=== PATIENT | male | born 1955 | race Caucasian/White ===

== ENCOUNTER 2018-04-03 09:17 | Outpatient (REF) | payer OTHER, SELFPAY ==
[2018-04-03 20:47] LABS: HCT 45.7 % (40.0-50.0); HGB 16.1 g/dL (13.5-17.5); Mean Corp. HGB Concentration 35.2 g/dL (32.0-36.0); Mean Corpuscular Volume 85.1 fL (80-95); Mean Platelet Volume 9.4 fL (8.0-11.0); Platelet Count 263 x1000/uL (130-400); RBC 5.37 m/cumm (4.50-6.00); RBC Distribution Width 12.8 % (11.8-14.1); White Blood Cell Count 6.43 k/cumm (4.4-10.8)
[2018-04-03 21:47] LABS: ALT 126 U/L (12-78); AST 52 U/L (15-37); Alkaline Phosphatase 93 U/L (46-116); Anion Gap 9.2 mmol/L (3-11); BUN 15 mg/dL (7-18); Bilirubin, Total 0.4 mg/dL (0.2-1.0); CO2 25.8 mmol/L (21.0-32.0); CREATININE 1.08 mg/dL (0.70-1.30); Calcium 9.1 mg/dL (8.5-10.1); Chloride 101 mmol/L (98-107); Cholesterol 233 mg/dL (50-200); Glucose 214 mg/dL (70-100); HDL Cholesterol 31 mg/dL (40-60); LDL CHOLESTEROL 122 mg/dL (<100); Potassium 4.3 mmol/L (3.5-5.1); Sodium 136 mmol/L (136-145); Total Protein 7.6 g/dL (6.4-8.2); Triglyceride 500 mg/dL (30-150)
== END 2018-04-03 09:37 ==
LOC: NCHCN 09:17
PROVIDERS: PCP Family Medicine; Visit Provider Family Medicine
DX: K82.4 Cholesterolosis of gallbladder (principal); R74.8 Abnormal levels of other serum enzymes; E11.9 Type 2 diabetes mellitus without complications; I10 Essential (primary) hypertension; E78.5 Hyperlipidemia, unspecified
CPT/HCPCS: 80053; 80061; 83721; 85027

== ENCOUNTER 2018-04-09 01:28 | Outpatient (CLI) | payer OTHER, SELFPAY ==
--- NOTE | 2018-04-09 07:02 | DI.US_ITS ---
SYMPTOM/DIAGNOSIS: GB POLYPS, K82.4, ELEVATED LIVER ENZYMES, R74.8 ABDOMEN ULTRASOUND: Comparison is made with 09/09/14. The liver is mildly enlarged and shows mild fatty infiltration. Several gallstones are again identified. There is a 2 mm. echogenic focus adherent to the gallbladder wall which likely represents cholesterol deposition. The spleen is at the upper limits of normal in size at 14 cm. The tail of the pancreas was unable to be visualized. The kidneys are unremarkable. An area of focal fatty sparing is again noted adjacent to the gallbladder fossa. No biliary dilatation is seen. There is no evidence of ascites. IMPRESSION: Hepatic steatosis. Borderline splenomegaly. Cholelithiasis.
== END 2018-04-09 01:48 ==
PROVIDERS: PCP Family Medicine; Visit Provider Family Medicine
DX: K82.4 Cholesterolosis of gallbladder (principal); R74.8 Abnormal levels of other serum enzymes; R16.1 Splenomegaly, not elsewhere classified; K76.0 Fatty (change of) liver, not elsewhere classified; K80.20 Calculus of gallbladder without cholecystitis without obstruction
CPT/HCPCS: 76700

== ENCOUNTER 2018-11-21 10:58 | Outpatient (REF) | payer OTHER, SELFPAY ==
[2018-11-21 19:10] LABS: Absolute Basophil Count 0.06 k/cumm (0.0-0.2); Absolute Eosinophil Count 0.07 k/cumm (0.0-0.7); Absolute Lymphocyte Count 2.07 k/cumm (1.2-3.4); Absolute Neutrophil Count 4.43 k/cumm (1.2-6.7); Basophils % 0.8; HCT 45.3 % (40.0-50.0); HGB 15.9 g/dL (13.5-17.5); Mean Corp. HGB Concentration 35.1 g/dL (32.0-36.0); Mean Corpuscular Hemoglobin 29.9 pg (27.0-33.0); Mean Corpuscular Volume 85.2 fL (80-95); Mean Platelet Volume 9.8 fL (8.0-11.0); Neutrophils % 62.2; Platelet Count 295 x1000/uL (130-400); RBC 5.32 m/cumm (4.50-6.00); RBC Distribution Width 12.7 % (11.8-14.1); White Blood Cell Count 7.13 k/cumm (4.4-10.8)
[2018-11-21 19:44] LABS: ALT 137 U/L (12-78); AST 61 U/L (15-37); Albumin 4.1 g/dL (3.4-5.0); Alkaline Phosphatase 100 U/L (46-116); Anion Gap 13.6 mmol/L (3-11); BUN 12 mg/dL (7-18); Bilirubin, Total 0.5 mg/dL (0.2-1.0); CO2 21.4 mmol/L (21.0-32.0); CREATININE 1.11 mg/dL (0.70-1.30); Calcium 8.7 mg/dL (8.5-10.1); Chloride 99 mmol/L (98-107); Glucose 281 mg/dL (70-100); Potassium 4.4 mmol/L (3.5-5.1); Sodium 134 mmol/L (136-145); Total Protein 7.9 g/dL (6.4-8.2)
== END 2018-11-21 11:18 ==
LOC: NCHCN 10:58
PROVIDERS: PCP Family Medicine; Visit Provider Physician Assistant Medical
DX: R10.11 Right upper quadrant pain (principal); K80.20 Calculus of gallbladder without cholecystitis without obstruction
CPT/HCPCS: 80053; 85025

== ENCOUNTER 2018-11-23 11:05 | Emergency (ER) | payer OTHER, SELFPAY ==
[2018-11-23 11:20] VITALS: BP 150/84; PULSE 78; RESP 12; TEMP 36.6; O2SAT 95
[2018-11-23 11:22] VITALS: BP 169/94; PULSE 77; O2SAT 96
--- NOTE | 2018-11-23 11:25 | ED.GENADUL_ITS ---
Discharge Plan Disposition Patient Disposition: HOME Condition: Fair Discharge Details Chief Complaint: Abd Prob Clinical Impression: Acute urinary retention, Enlarged prostate Primary Care Provider: Adrianne Guerra V ED Provider: Jocelyne Daily Home Meds and New Rx's Prescriptions: New silodosin [Rapaflo] 8 mg capsule 8 mg PO DAILY Qty: 10 RF: 0 Continued bupropion HCl [Wellbutrin XL] 150 MG tablet extended release 24 hr 150 mg PO DAILY RF: 0 multivitamin with minerals [Multiple Vitamin-Minerals] 1 EACH tablet 1 ea PO DAILY RF: 0 rgaisenbcsj-pocgnarmx-xwv C-Mn [Glucosamine 1500 Complex] 1 EACH capsule 1 ea PO DAILY RF: 0 Fish Oil 1 EACH capsule 1 ea PO DAILY RF: 0 amitriptyline 50 MG tablet 50 mg PO HS RF: 0 ibuprofen 800 MG tablet 800 mg PO TID PRN PRNQty: 90 RF: 1 metformin 500 mg Tablet 500 mg PO DAILY RF: 0 lisinopril 10 mg Tablet 10 mg PO DAILY RF: 0 ezetimibe 10 mg Tablet 10 mg PO DAILY RF: 0 Discharge Instructions Instructions: Urinary Retention in Men (ED) Additional Instructions: Encourage hydration. May continue with Tylenol and/or Ibuprofen as needed for discomfort. Take Rapaflow as prescribed. You will need follow up with urology, please call tomorrow to schedule appointment, number listed below. If you develop fevers/chills, increased pain or other new/worsening symptoms please seek care urgently once again. Referrals: Adrianne Guerra MD [Primary Care Provider] - Sven Whitlock MD [ [facility] STAFF PHYSICIAN] - Discharge Data Discharge Date/Time-TO BE ENTERED AT DEPARTURE: 11/23/18 15:18 Medical Decision Making Patient is a 63 year old male, presenting today with c/c of RUQ pain. However, on exam, the pain seems to be more in the right lower quadrant. Patient is tender over McBurney's point. He appears nontoxic. He is resting comfortably. Denies any analgesics. He is noted to be slightly hypertensive with a blood pressure of 150/84. Patient does report that his blood pressure has been higher than typical this week. Is also noted that his glucose has been elevated in the 150s to 200 range which is atypical for him. This is likely having to do with his abdominal issue. I am concerned for possible appendicitis. While there was a question for possible cholecystitis, he is not having any pain in the right upper quadrant at this time. Negative Lazaro's exam. Will obtain CT imaging and labs. Discussed this plan with the patient who is in agreement Labs reviewed. No leukocytosis. Patient's alk phos and AST are elevated but this is baseline for the patient. His glucose is 200 which is consistent with his report that his home glucose over the past week. CT reviewed by radiologist: Notes bladder wall being thick, this is distended. Concerned for cystitis Normal appendix. GB nothing focal, unable to visualize stones. No ductal dilation. Fatty liver Discussed these findings with the patient. With his distended bladder, we obtained a postvoid residual and the patient was noted to have 350 cc so retained. Discussed catheter placement but patient declined. Prefers pharmacologic modalities instead. Is that this will greatly interfere with his life, particularly with his current employment. I therefore consulted with Dr. Whitlock who advised placing the patient on Rapaflo. He advised the patient follow-up with them in the office this week, patient will call to schedule appointment. I encouraged hydration. He was given strict return precautions. In particular, we discussed signs and symptoms of infection. He will also keep his upcoming appointment with general surgeon regarding his known gallstone pathology. All of his questions and concerns were addressed and he is in agreement with this plan HPI General Mode of arrival: ambulatory . Date/Time Provider Initiated Documentation: 11/23/18 11:24 . Limitations to Documentation: no limitations . Information obtained by: patient, family and RN notes reviewed . HPI Narrative: Patient is a 63-year-old male presenting today with chief complaint of right upper quadrant pain. States the pain has been intermittent over the past week. Reports that he has history of gall stones, was seen by his PCP who was concerned that this may have been the source of his pain. He denies nausea/vomiting. No change in bowel or bladder habits. Feels that his symptoms can occasionally be worsened by food otherwise, no known exacerbating factors. Patient has upcoming appointment with general surgeon to discuss this issue as well as his known gallstones. Related Data Home Medications Medication Instructions Recorded Confirmed amitriptyline 50 mg PO HS 10/20/12 11/23/18 bupropion HCl [Wellbutrin XL] 150 mg PO DAILY tab-cap 07/13/16 11/23/18 Fish Oil 1 ea PO DAILY 08/22/16 11/23/18 gokocbtdioh-twronegjo-fkt C-Mn 1 ea PO DAILY 08/22/16 11/23/18 [Glucosamine 1500 Complex] multivitamin with minerals 1 ea PO DAILY 08/22/16 11/23/18 [Multiple Vitamin-Minerals] ibuprofen 800 mg PO TID PRN PRN #90 tablet 09/20/16 11/23/18 ezetimibe 10 mg PO DAILY 11/23/18 11/23/18 lisinopril 10 mg PO DAILY 11/23/18 11/23/18 metformin 500 mg PO DAILY 11/23/18 11/23/18 silodosin [Rapaflo] 8 mg PO DAILY #10 cap 11/23/18 Previous Rx's Medication Instructions Recorded ibuprofen 800 mg PO TID PRN PRN #90 tablet 09/20/16 silodosin [Rapaflo] 8 mg PO DAILY #10 cap 11/23/18 Allergies Allergy/AdvReac Type Severity Reaction Status Date / Time Latex, Natural Rubber Allergy Skin Rash Unverified 11/23/18 12:17 lisinopril AdvReac Mild cough Unverified 11/23/18 12:17 General Stated Complaint: Abd Prob LAWRENCE: 4 Review of Systems Constitutional Reports as per HPI, Denies chills, Denies fatigue, Denies fever(s) and Denies headache(s) ENT Denies headache(s) Cardiovascular Reports as per HPI, Denies chest pain and Denies dyspnea Respiratory Reports as per HPI, Denies cough and Denies dyspnea Gastrointestinal Reports as per HPI Genitourinary Denies system reviewed and no additional complaints, except as docu (patient denies any change in urinary habits) Musculoskeletal Reports as per HPI and Denies back pain Integumentary/Breasts Reports as per HPI and Denies rash Neurologic Reports as per HPI and Denies headache(s) Endocrine Denies fatigue [facility] Medical History Abdominal pain Achilles tendonitis Arthritis Depression Diabetes mellitus Elevated liver enzymes Gallbladder polyp Hand swelling History of hepatitis Hyperlipidemia Hypertension Insomnia Left hand pain Nonalcoholic hepatosteatosis [place] (obstructive sleep apnea) Right knee pain Right shoulder pain Surgical History Colonoscopy - IV Sedation Colonoscopy - MAC (06/24/17) Rotator Cuff Repair Tonsillectomy and adenoidectomy Family History Father Personal history of malignant neoplasm Social History Smoking/Tobacco Use Status: Never Alcohol Intake: never Drug use: Never Substance use type: does not use Do you feel safe at home: Yes Do you feel safe in your relationship?: Yes Exam Const General: cooperative, healthy appearing, comfortable, no acute distress and well developed Nutritional Appearance: average body habitus and well nourished Orientation: alert and awake [facility] Head: normal to inspection Mouth: moist mucous membranes Resp Effort & Inspection: normal respiratory effort, able to speak in complete sentences and no respiratory distress Auscultation: clear to auscultation bilaterally, no rales, no rhonchi and no wheezes Cardio Rate: regular rate Rhythm: regular rhythm Heart Sounds: S1 normal and S2 normal GI Inspection: normal to inspection, no abdominal wall ecchymosis, no edema, non- distended and no incisions Palpation: soft, no hepatosplenomegaly, not firm, no guarding, no hepatomegaly, no masses, not rigid and tender in the RLQ and at McBurney's point; Lazaro's sign negative, obturator sign negative, psoas sign negative and with no rebound tenderness Percussion: normal to percussion Auscultation: normal bowel sounds Back/Spine/Pelvis Back: no CVA tenderness Skin General skin exam: no rashes or lesions noted Trauma: no lacerations or abrasions Neuro General: alert and awake Cognition: normal cognition Speech: speech normal Gait: normal gait Psych Appearance: grossly normal and well kempt Mental Status: mental status grossly normal Speech and Movement: speech and movement normal Course Vital Signs Temperature 36.6 C 11/23/18 11:20 Temperature 36.6 C 11/23/18 11:20 Temperature Source Skin 11/23/18 11:20 Pulse 77 11/23/18 11:22 Blood Pressure 169/94 H 11/23/18 11:22 Pulse Oximetry 96 11/23/18 11:22 Oxygen Delivery Method Room Air 11/23/18 11:22 Oxygen Flow Rate 0 11/23/18 11:22
[2018-11-23 12:19] LABS: Absolute Basophil Count 0.04 k/cumm (0.0-0.2); Absolute Eosinophil Count 0.08 k/cumm (0.0-0.7); Absolute Lymphocyte Count 1.83 k/cumm (1.2-3.4); Absolute Monocyte Count 0.45 k/cumm (0.11-0.7); Basophils % 0.7; Eosinophils % 1.4; HCT 43.2 % (40.0-50.0); HGB 15.5 g/dL (13.5-17.5); Lymphocytes % 32.1; Mean Corp. HGB Concentration 35.9 g/dL (32.0-36.0); Mean Corpuscular Hemoglobin 30.3 pg (27.0-33.0); Mean Corpuscular Volume 84.5 fL (80-95); Mean Platelet Volume 9.3 fL (8.0-11.0); Monocytes % 7.9; Neutrophils % 57.9; Platelet Count 258 x1000/uL (130-400); RBC 5.11 m/cumm (4.50-6.00); RBC Distribution Width 12.8 % (11.8-14.1)
[2018-11-23 12:31] LABS: Lipase 318 U/L (73-393)
[2018-11-23 12:33] LABS: Bilirubin Negative (Negative); Blood Negative (Negative); Clarity Clear (Clear); Glucose 100 mg/dL (Negative); Ketones Negative (Negative); Leukocyte Esterase Negative (Negative); Nitrite Negative (Negative); Urobilinogen 0.2 EU/dL (Up TO 0.2)
[2018-11-23] MEDS: Normal Saline 1,000 ML 1000 ML IV (12:33)
[2018-11-23] MEDS: Normal Saline Flush 10 ML SYR IVP (12:33)
[2018-11-23 12:40] LABS: ALT 132 U/L (12-78); AST 71 U/L (15-37); Albumin 3.7 g/dL (3.4-5.0); Alkaline Phosphatase 83 U/L (46-116); Anion Gap 10.1 mmol/L (3-11); BUN 11 mg/dL (7-18); Bilirubin, Total 0.5 mg/dL (0.2-1.0); CO2 25.9 mmol/L (21.0-32.0); CREATININE 1.04 mg/dL (0.70-1.30); Calcium 8.9 mg/dL (8.5-10.1); Chloride 101 mmol/L (98-107); Glucose 207 mg/dL (70-100); Magnesium 2.1 mg/dL (1.8-2.4); Sodium 137 mmol/L (136-145); Total Protein 7.6 g/dL (6.4-8.2)
[2018-11-23 12:42] LABS: Troponin I < 0.05 ng/mL (0.00-0.06)
[2018-11-23] MEDS: Omnipaque 350 MG/ML 100 ML BTL IJ (13:09)
--- NOTE | 2018-11-23 13:15 | DI.CT_ITS ---
SYMPTOM/DIAGNOSIS: RLQ PAIN ABDOMEN AND PELVIC CT: CT examination of the abdomen and pelvis was performed with a bolus infusion of 100 cc's of Omnipaque 350. Images obtained through the lung bases are unremarkable. Note is made of hepatic steatosis. The gallbladder and bile ducts are CT normal as is the pancreas. Adrenals and kidneys appear normal, no evidence of urinary tract calcification or obstruction. Abdominal aorta is of normal diameter and no major vascular abnormality is seen. No significant abdominal wall hernia is seen. No significant abdominal or pelvic adenopathy. The appendix is normal. No evidence of diverticulitis or bowel obstruction. Prostate is enlarged and nodular in appearance. Prostate protrudes into the urinary bladder. Mild urinary bladder wall thickening, this may be associated with chronic bladder outlet obstruction versus cystitis. CONCLUSION: 1. Hepatic steatosis. 2. Question chronic bladder outlet obstruction versus cystitis, prostate is markedly enlarged.
--- NOTE | 2018-11-23 14:00 | NUR.NOTE ---
Nursing Note: pt instructed to void into urinal. pt voided 300 mL clear yellow urine. Bladder scan then completed. >352 mL urine remaining in bladder immediately post void
[2018-11-23 15:17] VITALS: BP 134/85; PULSE 67; RESP 18; TEMP 36.5; O2SAT 95
== END 2018-11-23 15:18 | disposition home or self-care (01) ==
PROVIDERS: Emergency Provider Physician Assistant; PCP Family Medicine
DX: N40.1 Benign prostatic hyperplasia with lower urinary tract symptoms (principal); R33.9 Retention of urine, unspecified; I10 Essential (primary) hypertension; E11.9 Type 2 diabetes mellitus without complications; Z79.84 Long term (current) use of oral hypoglycemic drugs
CPT/HCPCS: 36415; 80053; 83690; 99285; 74177; 81003; 83735; 84484; 85025; 99284; J3490

== ENCOUNTER 2018-12-04 09:05 | Outpatient (CLI) | payer OTHER, SELFPAY ==
[2018-12-05 09:59] LABS: PSA, Screening 3.1 ng/ml (0-4.5)
== END 2018-12-04 09:25 ==
PROVIDERS: PCP Family Medicine; Visit Provider Nurse Practitioner Gerontology
DX: N40.0 Benign prostatic hyperplasia without lower urinary tract symptoms (principal); N40.2 Nodular prostate without lower urinary tract symptoms; Z80.42 Family history of malignant neoplasm of prostate; Z12.5 Encounter for screening for malignant neoplasm of prostate
CPT/HCPCS: 36415; 84153

== ENCOUNTER 2018-12-16 10:16 | Outpatient (REF) | payer OTHER, SELFPAY ==
[2018-12-16 21:29] LABS: Abs Immature Grans 0.01 k/cumm (0.0-0.09); Absolute Basophil Count 0.07 k/cumm (0.0-0.2); Absolute Eosinophil Count 0.11 k/cumm (0.0-0.7); Absolute Lymphocyte Count 1.78 k/cumm (1.2-3.4); Absolute Monocyte Count 0.46 k/cumm (0.11-0.7); Absolute Neutrophil Count 3.59 k/cumm (1.2-6.7); Basophils % 1.2; Eosinophils % 1.8; HCT 45.5 % (40.0-50.0); HGB 16.4 g/dL (13.5-17.5); Immature Grans % 0.2; Lymphocytes % 29.6; Mean Corpuscular Hemoglobin 30.5 pg (27.0-33.0); Mean Corpuscular Volume 84.6 fL (80-95); Mean Platelet Volume 9.5 fL (8.0-11.0); Monocytes % 7.6; Neutrophils % 59.6; Platelet Count 296 x1000/uL (130-400); RBC 5.38 m/cumm (4.50-6.00); RBC Distribution Width 12.5 % (11.8-14.1); White Blood Cell Count 6.02 k/cumm (4.4-10.8)
[2018-12-16 21:49] LABS: ALT 204 U/L (16-63); AST 77 U/L (15-37); Albumin 4.1 g/dL (3.4-5.0); Alkaline Phosphatase 100 U/L (46-116); Anion Gap 10.1 mmol/L (3-11); BUN 13 mg/dL (7-18); Bilirubin, Total 0.5 mg/dL (0.2-1.0); CO2 23.9 mmol/L (21.0-32.0); CREATININE 1.09 mg/dL (0.70-1.30); Calcium 9.2 mg/dL (8.5-10.1); Chloride 100 mmol/L (98-107); Glucose 312 mg/dL (70-100); Potassium 4.6 mmol/L (3.5-5.1); Sodium 134 mmol/L (136-145); Total Protein 7.8 g/dL (6.4-8.2)
[2018-12-18 11:03] LABS: PSA, Screening 3.8 ng/ml (0-4.5)
== END 2018-12-16 10:36 ==
LOC: NCHCN 10:16
PROVIDERS: Nurse Practitioner Gerontology; PCP Family Medicine; Visit Provider Family Medicine
DX: Z80.42 Family history of malignant neoplasm of prostate (principal); R10.31 Right lower quadrant pain; Z12.5 Encounter for screening for malignant neoplasm of prostate
CPT/HCPCS: 80053; 84153; 85025

== ENCOUNTER 2019-10-30 09:07 | Outpatient (REF) | payer OTHER, SELFPAY ==
[2019-10-30 19:47] LABS: Hemoglobin A1C 7.9 % (3.8-5.6)
[2019-10-30 19:52] LABS: ALT 198 U/L (16-63); AST 107 U/L (15-37); Albumin 4.2 g/dL (3.4-5.0); Alkaline Phosphatase 83 U/L (46-116); Anion Gap 12.2 mmol/L (3-11); BUN 13 mg/dL (7-18); Bilirubin, Total 0.6 mg/dL (0.2-1.0); CO2 24.8 mmol/L (21.0-32.0); CREATININE 0.98 mg/dL (0.70-1.30); Calcium 9.1 mg/dL (8.5-10.1); Calculated LDL 157 mg/dL (<100); Chloride 103 mmol/L (98-107); Cholesterol 232 mg/dL (<200); Glucose 172 mg/dL (74-106); HDL Cholesterol 38 mg/dL (40-60); Potassium 4.1 mmol/L (3.5-5.1); Sodium 140 mmol/L (136-145); Total Protein 7.7 g/dL (6.4-8.2); Triglyceride 187 mg/dL (<150)
== END 2019-10-30 09:27 ==
LOC: NCHCN 09:07
PROVIDERS: PCP Family Medicine; Visit Provider Family Medicine
DX: E88.81 Metabolic syndrome and other insulin resistance (principal); K76.0 Fatty (change of) liver, not elsewhere classified; E11.9 Type 2 diabetes mellitus without complications; I10 Essential (primary) hypertension; E78.5 Hyperlipidemia, unspecified
CPT/HCPCS: 80053; 80061; 83036

== ENCOUNTER 2019-11-25 01:41 | Outpatient (CLI) | payer OTHER, SELFPAY ==
--- NOTE | 2019-11-25 | DI.US_ITS ---
EXAM: US ABDOMEN CLINICAL HISTORY: KNOWN CH,ELEVATED LFT'S,? NEW ABNORMALITY TECHNIQUE: Ultrasound performed using standard protocol. COMPARISON: US ABDOMEN ULTRASOUND (P) from 09/09/2014 US ABDOMEN ULTRASOUND (P) from 09/09/[address] ABDOMEN PELVIS W from 11/23/2018 FINDINGS: The liver is mildly enlarged, measuring 17.7 cm in length. There is dpeo-po-vuzvhblx increased live r echogenicity, consistent with hepatic steatosis. No focal liver lesions or biliary dilatation is s een. Stones are noted in the gallbladder. There is a stone at the gallbladder neck which appears no nmobile. There is no abnormal gallbladder wall thickening or pericholecystic fluid. There is no son ographic Lazaro sign. There is borderline splenomegaly. The kidneys and aorta and visualized portio ns of the pancreas are unremarkable. IMPRESSION: Cholelithiasis. No evidence acute cholecystitis. Hepatic steatosis. DATA REPOSITORY:
== END 2019-11-25 02:01 ==
PROVIDERS: PCP Family Medicine; Visit Provider Physician Assistant Medical
DX: K80.20 Calculus of gallbladder without cholecystitis without obstruction (principal); K76.0 Fatty (change of) liver, not elsewhere classified
CPT/HCPCS: 76700

== ENCOUNTER 2019-12-18 02:14 | Outpatient (CLI) | payer OTHER, SELFPAY ==
[2019-12-21 10:27] LABS: PSA, Screening 3.6 ng/mL (0.0-4.5)
== END 2019-12-18 02:34 ==
PROVIDERS: PCP Family Medicine; Visit Provider Nurse Practitioner Gerontology
DX: N40.0 Benign prostatic hyperplasia without lower urinary tract symptoms (principal); Z12.5 Encounter for screening for malignant neoplasm of prostate; Z80.42 Family history of malignant neoplasm of prostate
CPT/HCPCS: 36415; 84153

== ENCOUNTER 2020-01-14 15:05 | Outpatient (REF) | payer OTHER, SELFPAY ==
[2020-01-14 19:20] LABS: HCT 42.5 % (40.0-50.0); HGB 14.9 g/dL (13.5-17.5); MCH 30.3 pg (27.0-33.0); MCHC 35.1 % (32.0-36.0); MCV 86.4 fL (80-95); MPV 9.3 fL (8.0-11.0); Platelet Count 288 10^3/uL (130-400); RBC 4.92 10^6/uL (4.36-5.78); RDW 12.2 % (11.8-14.1); RDW-SD 38.6 fL; WBC 7.64 10^3/uL (4.4-10.8)
[2020-01-14 19:57] LABS: Hemoglobin A1C 7.5 % (<5.7)
== END 2020-01-14 15:25 ==
LOC: NCHCN 15:05
PROVIDERS: PCP Family Medicine; Visit Provider Family Medicine
DX: E11.9 Type 2 diabetes mellitus without complications (principal); R23.2 Flushing
CPT/HCPCS: 85027; 83036

== ENCOUNTER 2020-04-15 04:29 | Outpatient (CLI) | payer OTHER, SELFPAY ==
--- NOTE | 2020-04-15 | DI.RAD_ITS ---
EXAM: XR SHOULDER LT COMPLETE 2+V CLINICAL HISTORY: LT SHOULDER JOINT PAIN,M25.512. TECHNIQUE: 2D digital imaging was performed. COMPARISON: No exams were available for comparison FINDINGS: BONES: No acute fracture is present. No bony destructive lesion is seen. JOINTS: No dislocation present. SOFT TISSUE: Normal. IMPRESSION: Unremarkable radiographs of the left shoulder. DATA REPOSITORY: RADIATION DOSE DELIVERED:
== END 2020-04-15 04:49 ==
PROVIDERS: PCP Family Medicine; Visit Provider Nurse Practitioner Family
DX: M25.512 Pain in left shoulder (principal)
CPT/HCPCS: 73030

== ENCOUNTER 2020-05-23 01:07 | Outpatient (CLI) | payer OTHER, SELFPAY ==
--- NOTE | 2020-05-23 | DI.MRI_ITS ---
EXAM: MR UPPER JOINT LT WO CLINICAL HISTORY: LT SHOULDER PAIN, M25.512, ? ROTATOR CUFF TEAR TECHNIQUE: Multiplanar multisequence MRI of the shoulder was performed. COMPARISON: CR XR SHOULDER LT COMPLETE 2+V from 04/15/2020 FINDINGS: MARROW:There is no evidence of fracture, Hill-Sachs deformity, nor ominous osseous lesions. ROTATOR CUFF MECHANISM: AC JOINT/ACROMIUM: Minimal degenerative changes in the AC joint. No downgoing osteophytes. Undersur face of the acromion is flat. There is no acromial impingement hook evident. There is no evidence of os acromiale. Supraspinatus: Mild increased signal. No high-grade tear. No atrophy. Infraspinatus: Intact. No evidence of tear nor muscle atrophy. Teres Minor: Intact. No evidence of tear nor muscle atrophy. Subscapularis/anterior cuff: Intact. No abnormal signal at the level of the multipennate insertional fibers. No significant tear nor atrophy. BICEPS TENDON: Normally position in the intertubercular groove. No evidence of tear. LABRUM: There is abnormal signal in the superior labrum posterior to the biceps insertion site consis tent with an element of SLAP tear. Tear does not appear to extend into the posterior labrum. Inferi or labrum is intact. Mild increased signal in the anterior labrum is noted. There are no degenerati ve subarticular cysts in the osseous glenoid. GLENOHUMERAL JOINT: There is a small-moderate size joint effusion. No loose intra-articular body see n. No evidence of capsular tear. The inferior glenohumeral ligament is intact. CAPSULE: No capsular tears evident. The inferior glenohumeral ligament is intact. QUADRILATERAL SPACE: No evidence of mass in the region of the axillary nerve and dorsal circumflex hu meral vessels. Visualized triceps muscle at this level appears unremarkable. IMPRESSION: 1. There is abnormal signal in the superior labrum posterior to the biceps tendon insertion site cons istent with SLAP tear. This does not appear to extend significantly into the posterior labrum althou gh there does appear to be some tearing of the anterior labrum also evident. The biceps tendon itsel f does not appear torn or displaced. 2. Mild increased signal in the rotator cuff tendon but no evidence of full-thickness tear. No fluid in subacromial bursa. 3. Moderate-sized glenohumeral joint effusion noted. There is no loose intra-articular body evident. DATA REPOSITORY:
== END 2020-05-23 01:08 ==
LOC: DI 01:07
PROVIDERS: PCP Family Medicine; Visit Provider Nurse Practitioner Family
DX: M25.512 Pain in left shoulder (principal); M25.412 Effusion, left shoulder
CPT/HCPCS: 73221

== ENCOUNTER 2020-06-22 16:16 | Outpatient (REF) | payer OTHER, SELFPAY ==
[2020-06-24 13:15] LABS: COVID-19 RT-PCR UVMMC Result Positive (Negative)
== END 2020-06-22 16:17 | disposition home or self-care (01) ==
LOC: NCHCN 16:16
PROVIDERS: PCP Family Medicine; Visit Provider Family Medicine
DX: Z20.822 Contact with and (suspected) exposure to COVID-19 (principal); J06.9 Acute upper respiratory infection, unspecified
CPT/HCPCS: U0003

== ENCOUNTER 2020-06-24 05:23 | Outpatient (CLI) | payer OTHER, SELFPAY ==
[2020-06-24 11:53] VITALS: BP 149/90; PULSE 78; RESP 16; TEMP 35.7; O2SAT 98
[2020-06-24] MEDS: Normal Saline Flush 10 ML SYR IVP (12:37)
[2020-06-24] MEDS: Normal Saline 500 ML 30 ML IV (12:37)
[2020-06-24 12:48] VITALS: BP 129/77; PULSE 72; RESP 18; TEMP 36.7; O2SAT 96
[2020-06-24 13:14] VITALS: BP 121/76; PULSE 68; RESP 18; TEMP 36.7; O2SAT 94
[2020-06-24 13:35] VITALS: BP 114/75; PULSE 76; RESP 18; TEMP 36.7; O2SAT 95
[2020-06-24 14:05] VITALS: BP 122/75; PULSE 73; RESP 16; TEMP 36.8; O2SAT 93
[2020-06-24 14:35] VITALS: BP 118/76; PULSE 74; RESP 18; TEMP 36.5; O2SAT 95
== END 2020-06-24 05:24 | disposition home or self-care (01) ==
LOC: INF 05:23
PROVIDERS: PCP Family Medicine; Visit Provider Family Medicine
DX: U07.1 COVID-19 (principal)
CPT/HCPCS: 96365

== ENCOUNTER 2020-07-18 03:35 | Outpatient (CLI) | payer OTHER, SELFPAY ==
[2020-07-18 11:56] LABS: Source Nasal/Nares
[2020-07-18 19:02] LABS: COVID-19 PCR Negative (Negative)
== END 2020-07-18 03:36 | disposition home or self-care (01) ==
LOC: LBO 03:35
PROVIDERS: PCP Family Medicine; Visit Provider Student in an Organized Health Care Education/Training Program
DX: Z20.822 Contact with and (suspected) exposure to COVID-19 (principal); Z01.818 Encounter for other preprocedural examination
CPT/HCPCS: 87635

== ENCOUNTER 2020-07-19 10:17 | Day surgery (SDC) | payer OTHER, SELFPAY ==
[2020-07-19] VITALS (8 sets, daily range): BP systolic 122–155; BP diastolic 61–90; PULSE 71–80; RESP 11–18; TEMP 35.8–36.5; O2SAT 94–97
[2020-07-19] MEDS: Lactated Ringers 1,000 ML 80 ML IV (10:50)
[2020-07-19] MEDS: Bupivacaine LIPOSOME/PF 133 MG/10 ML VIAL IJ (11:30)
[2020-07-19] MEDS: ceFAZolin 2 GM/50 ML BAG IVPB (11:49)
[2020-07-19] MEDS: EPINEPHrine 30 MG/30 ML VIAL ×2 (12:41→12:42)
--- NOTE | 2020-07-19 12:42 | W.PM.DSUDISC ---
Discharge Plan Disposition Patient Disposition: HOME Condition: Good Discharge Details Reason For Visit: L shoulder arthroscopy Attending Provider: Mark Rockwell Primary Care Provider: Adrianne Guerra V Home Meds and New Rx's Prescriptions: New oxycodone 5 mg capsule 5 mg PO Q4H PRNQty: 14 RF: 0 ibuprofen 600 mg tablet 600 mg PO TID PRN (Reason: pain) Qty: 30 RF: 0 acetaminophen 500 mg capsule 1,000 mg PO Q8H PRN PRNQty: 90 RF: 0 Continued Jardiance 10 mg tablet 10 mg PO DAILY RF: 0 metformin [Glucophage] 1,000 mg tablet 1,000 mg PO BID RF: 0 losartan 25 mg tablet 25 mg PO DAILY RF: 0 clobetasol 0.05 % shampoo 1 applic topical DAILY RF: 0 ondansetron HCl [Zofran] 8 mg tablet 8 mg PO Q12H RF: 0 cholecalciferol (vitamin D3) 25 mcg (1,000 unit) capsule 25 mcg PO DAILY RF: 0 turmeric root extract 500 mg capsule 500 mg PO DAILY RF: 0 multivitamin with minerals [Multiple Vitamin-Minerals] 1 EACH tablet 1 ea PO DAILY RF: 0 ldzidyglvzl-lfiulxrbk-viz C-Mn [Glucosamine 1500 Complex] 1 EACH capsule 1 ea PO DAILY RF: 0 bupropion HCl [Wellbutrin XL] 150 mg tablet extended release 24 hr 75 mg PO BID RF: 0 amitriptyline 50 MG tablet 50 mg PO HS RF: 0 lisinopril 10 mg Tablet 10 mg PO DAILY RF: 0 ezetimibe 10 mg Tablet 10 mg PO DAILY RF: 0 Discontinued ibuprofen 800 MG tablet 800 mg PO TID PRN PRNQty: 90 RF: 1 Discharge Instructions Stand Alone Forms: Moiz Mckenzie w/RCR Equipment/Supplies: Bolster Pillow and Sling Activity:: Elevate Remove Dressings/Wound Care:: 72 hours Shower/Bathe:: 72 hours Diet:: As Tolerated Discharge Orders Discharge Orders: Discharge Order (Routine); Ordered 07/19/20 Ordered By: Cristobal Kruse DS: Diagnosis Discharge Diagnosis (1) Tendonitis of left rotator cuff: Status: Acute (2) Superior labrum sqyafhps-kj-xmoygeeqo (SLAP) tear of left shoulder: Status: Acute (3) Rotator cuff tear, left: Status: Acute
[2020-07-19] MEDS: Bupivacaine 0.25% Pres-Free 30 ML VIAL (12:50)
--- NOTE | 2020-07-19 17:52 | W.PM.OP ---
Date of service: 07/19/20 Time of Service: 13:24 Operative Note Operative Note DATE OF PROCEDURE: 07/19/20 PRE-OP DIAGNOSIS: Left Rotator Cuff Tendinitis, SLAP tear, impingement POST-OP DIAGNOSIS: same Focal Humeral Head Chondromalacia PROCEDURE: - Extensive debridement of anterior and posterior glenohumeral joint and rotator cuff including chondroplasty of the humeral head - Sub-pectoral biceps tenodesis - Subacromial Debridement with Acromioplasty SURGEON: Mark Rockwell JUNIOR ASSISTANT MANAGER: Adrianne Nuñez ANESTHESIA TYPE: General LMA/ETT Refer to Anesthesia Record ESTIMATED BLOOD LOSS: 5 PATHOLOGY: none sent TOURNIQUET TIME: 0 COMPLICATIONS: None Patient was transported to: PACU Patient's condition: stable Indications: I have seen Jose in clinic for a painful shoulder. Pathology was confirmed based on MRI and exam findings. Nonoperative measures were exhausted but disability and pain persisted. I discussed shoulder arthroscopy and procedures. I reviewed the risks of the procedures to include, but not limited to, bleeding, infection, pain, stiffness, damage to nerves or vessels, recurrence, hardware failure, blood clot. Despite these risks, the patient elected to proceed. Findings: A diagnostic arthroscopy was performed with the following findings: Articular Side - Glenohumeral Joint: Focal area of complete cartilage loss from the posterior, inferior humeral head with loose cartilage flaps - Labrum: type II SLAP tear from 11-3 - Cuff: minor fraying of supraspinatus and subscapularis insertion - Biceps: inflammatory changes Subacromial Side - Bursal: dense bursa - Rotator Cuff: minor fraying at the far anterior margin of supraspinatus and at the insertion of infraspinatus, <5mm - Small anterolaral acromial spur Procedure Description: Jose was greeted in the preoperative holding area where the correct side was identified and marked. The consent was reviewed with the patient and signed. The history and physical was updated. All questions were answered. He was taken back to the PACU for administration of an intrascalene nerve block. Jose was then taken to the operating room. The patient was placed into the supine position on the operating room table. A general anesthetic was administered. He was then positioned in the beach chair position. All bony prominences were well padded. The head was placed in a foam assistant head cashier in a neutral position. Prophylactic antibiotics in the form of Cefazolin were administered. The left arm/shoulder was then prepped with Chloraprep and draped in a standard fashion with stockinette and shoulder drape. A timeout to confirm correct identity, side and site, procedure, allergies, anesthesia, and medical concerns was performed. The arm was placed into a pneumatic schwarz, [id number]. The shoulder arthroscopy was then performed. The glenohumeral joint was injected with 20 cc of normal saline with good flow back. A standard posterior portal was made and the joint was entered atraumatically with a blunt arthroscope. Once inside we had good visualization of the structures of the glenohumeral joint. An anterior portal was established with spinal needle localization. A 6.5 mm cannula was inserted. A probe was then used to perform a diagnostic arthroscopy. There is noted to be no significant global wear within the glenoid but there was loose cartilage flaps from the posteiror, inferior humeral head. These loose flaps were lifted off of the bone with an approximately 8x8mm area of Grade IV chondromalacia. The labrum was frayed and torn from the superior glenoid. There were no loose bodies in the inferior pouch. The superior rotator cuff was attached to the tuberosity with minor fraying at its insertion. The biceps tendon was without tearing but had significant inflammatory changes. The subscapularis was intact with very minor fraying seen at its insertion. A biceps tenotomy was performed with electrocautery for later tenodesis. The undersurface of the rotator cuff, which was notably inflamed, was debrided with a shaver. The rotator interval was opened and debrided. Manipulating the arm to gain access to the posterior-inferior humeral head, the cartilage flaps were debrided to a stable base. This left a nearly 1cm^2 area of Grade IV chondromalacia. The biceps tenodesis was then performed. With the arm and some slight external rotation abduction pectoralis major tendon was identified. A 2 cm incision was made overlying the insertion to the humerus. Sharp dissection was carried onto the skin. Blunt dissection was carried down to the fascia the biceps musculature. This was entered with a tenotomy scissors. The biceps groove was palpable and the biceps tendon was palpable. It was withdrawn from the wound using Allis clamp and finger dissection. Once the biceps tendon was out of the arm the biceps groove was prepared using a rasp. A Mitek Lupine anchor was inserted into the biceps groove at the level of the pectoralis major insertion. This was tested to make sure had excellent fixation into the bone. Using a free needle I then placed a locking Krak?w stitch and each side of the biceps tendon using one limb from each suture at the level of the muscular tendinous junction and moving proximally. Excess tendon was then cut. Using the free suture limb I then shuttled the tendon down to the prepared surface of the humerus. It laid flat against the humerus. It was at the level of the pectoralis major tendon. The suture limbs were then tied. The wound was irrigated. The subcutaneous tissue was reapproximated with a 2-0 Vicryl. The arthroscope was then inserted into the subacromial space. The 6.5 mm cannula was placed lateral to the CA ligament. Given that there was no significant tearing of the rotator cuff I went ahead and release the CA ligament off the anterolateral corner of the acromion. A complete bursectomy is performed anteriorly, posteriorly, and laterally with electrocautery and shaver. The bursa was quite thickened. After the bursectomy, we had excellent exposure of the rotator cuff. The bursal side rotator cuff was inspected. There was some minimal fraying at the anterior supraspinatus insertion and slightly more fraying seen at the infraspinatus insertion, approximately 3-4mm. There was a small, but downward pointing anterolateral spur. Using a spinal needle a lateral portal was established. This became the viewing portal. Any remaining bursa was resected. The bursal side of the rotator cuff was lightly and gently debrided. Then, a 5.0 mm soha was then inserted from the posterior portal. The anterolateral corner of the acromion was then resected in plane with the posterior slope of the acromion. The scope equipment was removed from the shoulder. Excess fluid was evacuated. The portal sites were closed with 3-0 Monocryl. The wounds were dressed with Steri-Strips, 4 x 4's, ABDs, Medipore tape. A sling was applied. The patient tolerated the procedure well and was returned to the PACU in a stable condition suffering no known complication.
== END 2020-07-19 15:50 | disposition home or self-care (01) ==
PROVIDERS: PCP Family Medicine; Visit Provider Student in an Organized Health Care Education/Training Program
PROC: (CPT 29827; principal; 2020-07-19 12:30)
PROC: (CPT 23430; 2020-07-19 12:30)
DX: M75.102 Unspecified rotator cuff tear or rupture of left shoulder, not specified as traumatic (principal); M75.22 Bicipital tendinitis, left shoulder; M75.42 Impingement syndrome of left shoulder; M75.82 Other shoulder lesions, left shoulder; M94.212 Chondromalacia, left shoulder
CPT/HCPCS: 23430; 29823; 29826; 76942; J0690; J1100; J2001; J2250; J2405; J2704

== ENCOUNTER 2020-11-29 04:20 | Outpatient (CLI) | payer OTHER, SELFPAY ==
[2020-11-29 12:52] LABS: Source Nasal/Nares
[2020-11-29 15:33] LABS: COVID-19 PCR Negative (Negative)
== END 2020-11-29 04:21 | disposition home or self-care (01) ==
LOC: LBO 04:20
PROVIDERS: PCP Family Medicine; Visit Provider Student in an Organized Health Care Education/Training Program
DX: Z20.822 Contact with and (suspected) exposure to COVID-19 (principal); Z01.818 Encounter for other preprocedural examination
CPT/HCPCS: 87635

== ENCOUNTER 2020-11-30 12:04 | Day surgery (SDC) | payer OTHER, SELFPAY ==
--- NOTE | 2020-11-30 07:49 | W.PM.DSUDISC ---
Discharge Plan Disposition Patient Disposition: HOME Condition: Good Discharge Details Reason For Visit: Left Shoulder Manipulation Attending Provider: Mark Rockwell Primary Care Provider: Adrianne Guerra V Home Meds and New Rx's Prescriptions: No Action Jardiance 10 mg tablet 10 mg PO DAILY RF: 0 metformin [Glucophage] 1,000 mg tablet 1,000 mg PO BID RF: 0 losartan 25 mg tablet 25 mg PO DAILY RF: 0 clobetasol 0.05 % shampoo 1 applic topical DAILY RF: 0 ondansetron HCl [Zofran] 8 mg tablet 8 mg PO Q12H RF: 0 cholecalciferol (vitamin D3) 25 mcg (1,000 unit) capsule 25 mcg PO DAILY RF: 0 turmeric root extract 500 mg capsule 500 mg PO DAILY RF: 0 multivitamin with minerals [Multiple Vitamin-Minerals] 1 EACH tablet 1 ea PO DAILY RF: 0 iqfiqkxmdbw-worvzkdpf-ehh C-Mn [Glucosamine 1500 Complex] 1 EACH capsule 1 ea PO DAILY RF: 0 bupropion HCl [Wellbutrin XL] 150 mg tablet extended release 24 hr 75 mg PO BID RF: 0 amitriptyline 50 MG tablet 50 mg PO HS RF: 0 ibuprofen 600 mg tablet 600 mg PO TID PRN (Reason: pain) Qty: 30 RF: 0 acetaminophen 500 mg capsule 1,000 mg PO Q8H PRN PRNQty: 90 RF: 0 lisinopril 10 mg Tablet 10 mg PO DAILY RF: 0 ezetimibe 10 mg Tablet 10 mg PO DAILY RF: 0 Discharge Instructions Additional Instructions: Shoulder Manipulation Discharge Instructions Activity: You should begin moving as soon as possible. You should apply ice to help with swelling and elevate when possible (especially in the first few days). Medications: - Rarely does this require any stronger pain medications. - Recommend to take up to 1000mg of Acetaminophen (Tylenol) and 600mg of Ibuprofen (Advil) every 8 hours as needed. These larger strength tablets were called in but you also may use khco-ftl-gwfsmva. Follow-up: 7-10 days Referrals: Mark Rockwell MD [ [facility] STAFF PHYSICIAN] - Activity:: Activity as Tolerated Diet:: As Tolerated Discharge Orders Discharge Orders: Discharge Order (Routine); Ordered 11/30/20 Ordered By: Adrianne Nuñez DS: Diagnosis Discharge Diagnosis (1) Arthrofibrosis of left shoulder: Status: Acute (2) S/P arthroscopy of left shoulder: Status: Acute
[2020-11-30 12:35] VITALS: BP 140/86; PULSE 63; RESP 16; TEMP 36.4; O2SAT 98
[2020-11-30] MEDS: Lactated Ringers 1,000 ML 80 ML IV (13:10)
--- NOTE | 2020-11-30 13:29 | W.ANESPRE ---
General Info Date of Service Date Performed: 11/30/20 Height: 6 ft 3 in Weight: 100.8 kg Body Mass Index (BMI): 27.8 Surgical Procedure: Operation Date: 11/30/20 14:25 Proposed Procedures Side Surgeon p Shoulder Manipulation Left Mark Rockwell MD Meds Allergies and Home Medications Allergies Allergy/AdvReac Type Severity Reaction Status Date / Time paroxetine [From Paxil] Allergy Intermediate unknown Verified 11/30/20 12:44 sertraline [From Zoloft] Allergy Intermediate unknown Verified 11/30/20 12:44 Uazddov-Ouy-Rol Reductase Allergy Intermediate unknown Verified 11/30/20 12:44 Inhibitor Latex, Natural Rubber Allergy Skin Rash Unverified 11/30/20 12:44 lisinopril AdvReac Mild cough Unverified 11/30/20 12:44 silodosin [From Rapaflo] AdvReac Mild lightheaded Verified 11/30/20 12:44 Home Medication Medication Instructions Recorded amitriptyline 50 mg PO HS 10/20/12 ibuwkssvuax-xqhrydbus-jul C-Mn 1 ea PO DAILY 08/22/16 [Glucosamine 1500 Complex] multivitamin with minerals 1 ea PO DAILY 08/22/16 [Multiple Vitamin-Minerals] ezetimibe 10 mg PO DAILY 11/23/18 cholecalciferol (vitamin D3) 25 25 mcg PO DAILY 12/29/19 mcg (1,000 unit) capsule clobetasol 0.05 % shampoo 1 applic TOPICAL DAILY 12/29/19 losartan 25 mg tablet 25 mg PO DAILY 12/29/19 ondansetron HCl 8 mg tablet 8 mg PO Q12H 12/29/19 turmeric root extract 500 mg 500 mg PO DAILY 12/29/19 capsule bupropion HCl 150 mg 24 hr tablet, 75 mg PO BID tab-cap 07/01/20 extended release empagliflozin 10 mg tablet 10 mg PO DAILY 07/01/20 metformin 1,000 mg tablet 1,000 mg PO BID 07/01/20 acetaminophen 1,000 mg PO Q8H PRN PRN #90 cap 07/19/20 ibuprofen 600 mg PO TID PRN #30 tab 07/19/20 Current Visit Medications: Current Medications Generic Name Dose Route Start Last Admin Trade Name Freq PRN Reason Stop Dose Admin Acetaminophen 650 mg 11/30/20 07:47 Acetaminophen 325 Mg Tab PO Q4H PRN PRN Hydrocodone Bitart/Acetaminophen 0 tab 11/30/20 07:47 Hydrocodone 5/Acetaminophen 325 Tab PO Q3H PRN PRN Pain Ringer's Solution 1,000 mls @ 80 mls/hr 11/30/20 06:00 11/30/20 13:10 IV 12/29/20 23:59 80 mls/hr INFUSION RONDA Administration Ondansetron HCl 4 mg/ Sodium 52 mls @ 200 mls/hr 11/30/20 07:47 Chloride IVPB Q6H PRN PRN IV Miscellaneous Supplies 1 each 11/30/20 06:00 Iv Access IV 12/29/20 23:59 DIRECTED RONDA Sodium Chloride 0 ml 11/30/20 06:00 Normal Saline Flush 10 Ml Syr IV 12/29/20 23:59 PRN PRN PFSH Active Problems Active Problems: Problem Status Onset Code Arthrofibrosis of left shoulder M24.612 S/P arthroscopy of left shoulder 07/19/20 Z98.890 Rotator cuff tear, left M75.102 RLQ abdominal pain R10.31 Cholelithiasis K80.20 Tendonitis of left rotator cuff M75.82 Superior labrum tyhgzbve-pl-pcfparwjt (SLAP) tear of left shoulder S43.432A Bursitis of left shoulder M75.52 Arthralgia of right acromioclavicular joint 07/13/16 M25.511 Balance problems R26.89 Peripheral neuropathy G62.9 Metabolic syndrome E88.81 Medical History Medical History Abdominal pain Achilles tendonitis Arthralgia of right acromioclavicular joint (07/13/16) Arthritis Balance problems (no longer an issue per pt. states it was vertigo related) Biceps tendinitis of right shoulder (07/13/16) Bursitis of left shoulder Depression Diabetes mellitus Elevated liver enzymes Enlarged prostate Gallbladder polyp Hand swelling History of COVID-19 06/22/20 History of hepatitis Hepatits A (when child, from eating at school) Hyperlipidemia Hypertension Insomnia Left hand pain Metabolic syndrome Nonalcoholic hepatosteatosis [place] (obstructive sleep apnea) uses CPAP Partial tear of right rotator cuff (07/13/16) Peripheral neuropathy Right knee pain Right shoulder pain Superior labrum oocuzyea-mj-gvkfbxrew (SLAP) tear of left shoulder Tendonitis of left rotator cuff Surgical History Surgical History Colonoscopy - IV Sedation Colonoscopy - MAC (06/24/17) Rotator Cuff Repair Tonsillectomy and adenoidectomy Tobacco Smoking/Tobacco Use Status: Never Alcohol Alcohol Intake: current Alcohol intake frequency: a few times a month Alcohol type: wine Substance Use Substance use: Never Substance use type: does not use Vital Signs and Lab Results Vital Signs Most Recent Vital Signs in EMR: Most Recent Vital Signs Temp Pulse Resp BP Pulse Ox 36.4 C L 63 16 140/86 98 11/30/20 12:35 11/30/20 12:35 11/30/20 12:35 11/30/20 12:35 11/30/20 12:35 Point of Care Results Point of Care Results: Finger Stick Blood Glucose 136 11/30/20 12:45 Lab Results Blood Type / Crossmatch: No Data to Display Complete Blood Count: No Data to Display Complete Metabolic Panel: No Data to Display Liver Function Panel: No Data to Display Coagulation Panel: No Data to Display Cardiac Panel: No Data to Display Arterial Blood Gas: No Data to Display Venous Blood Gas: No Data to Display Pancreas Panel: No Data to Display Thyroid Panel: No Data to Display Infectious Disease: Coronavirus (COVID-19)(PCR) Negative (Negative) 11/29/20 08:51 11/29/20 Coronavirus 2019 Source Nasal/Nares 11/29/20 08:51 11/29/20 Blood Cultures: No Data to Display Toxicology Panel: No Data to Display Anesthesia Assessment and Plan Anesthesia History Personal History: No History of Anesthesia Complications Family History: No Family History of Anesthesia Complications Exercise Tolerance Exercise Tolerance: Metabolic Equivalents>4 Pertinent Negatives Pertinent Negatives: No Major Cardiovascular Symptoms or Complaints and No Major Pulmonary Symptoms or Complaints (Obstructive Sleep Apnea uses CPAP every night, i can't sleep without it) Cardiac & Pulmonary Exam Cardiac Exam: Normal S1/S2 Heart Sounds Pulmonary Exam: Clear Bilateral Breath Sounds Airway Exam Known Difficult Airway: No Mallampati Class: 2 Mouth Opening: Normal (> 3cm) Thyromental Distance: Greater than 3 cm Facial Hair: Full [place] Neck Range of Motion: Full ROM Neck Circumference: Thick Teeth Condition: Normal Dentition ASA Classification ASA Score: ASA 2 Emergency Case?: No NPO Status NPO Status: NPO Clears >2 hours, Solids >8 hours Anesthesia Plan Resuscitation Status: Full Code Anesthesia Technique: General Anesthesia Airway Planned: Endotracheal Tube Monitors Used: Standard Monitors
[2020-11-30 13:32] VITALS: BMI 27.8
[2020-11-30] MEDS: methylPREDNISolone ACETATE 80 MG/ML VIAL (14:50)
[2020-11-30] MEDS: Bupivacaine 0.5% Pres-Free 30 ML VIAL (14:50)
--- NOTE | 2020-11-30 15:08 | W.PM.OP ---
Date of service: 11/30/20 Time of Service: 14:48 Operative Note Operative Note DATE OF PROCEDURE: 12/10/17 PRE-OP DIAGNOSIS: Left Shoulder Adhesive Capsulitis POST-OP DIAGNOSIS: same PROCEDURE: Left Shoulder Manipulation Under Anesthesia with Intraarticular Injection SURGEON: Mark Rockwell ANESTHESIA TYPE: General LMA/ETT Refer to Anesthesia Record ESTIMATED BLOOD LOSS: 0 PATHOLOGY: none sent COMPLICATIONS: None Patient was transported to: PACU Patient's condition: stable Indications: Jose is a 65 year old male with adhesive capsulitis of the shoulder. A trial of nonoperative and conservative treatment options were attempted without improvement. Given the persistence of dysfunction, I recommended a manipulation under anesthesia with injection. I discussed the risk of the procedure to include recurrence, stiffness, weakness, tendon rupture, fracture. Despite these risks, the patient elects to proceed. Findings: PREOP RANGE OF MOTION: Abduction = 100, Forward Flexion = 110, External Rotation = 45 POSTOP RANGE OF MOTION: Abduction = 170, Forward Flexion = 180, External Rotation = 80 Procedure Description: Jose was greeted in the preoperative holding area. Consent was reviewed with the patient and signed. History physical was updated. Correct site was marked. Patient was then transferred back to the operative suite. The correct site was identified and a timeout was performed for safety and per hospital protocol. A general anesthetic was administered. Intra-articular injection of the left shoulder was performed using an anterior approach and a spinal needle. I was able to inject 6 cc of 0.5% bupivacaine along with 80 mg of Depo-Medrol without difficulty. A Band-Aid was applied. Preoperative range of motion was checked and is noted in the above findings section. The manipulation was then performed in standard protocol focusing first on forward flexion, followed by abduction, followed by external rotation. This was cycled through a few times with notable crepitus and adhesion disruption both audible and palpable. Postoperative range of motion was then measured and is documented above in the findings. A simple sling was applied. Jose tolerated procedure well and was transferred back to the PACU in stable condition. Physical therapy will begin immediately home-based exercises are provided to the patient.
[2020-11-30 15:09] VITALS: BP 139/75; PULSE 76; RESP 17; TEMP 36.6; O2SAT 95
[2020-11-30 15:14] VITALS: BP 142/77; PULSE 72; RESP 18; TEMP 36.6; O2SAT 95
[2020-11-30 15:19] VITALS: BP 137/93; PULSE 70; RESP 16; TEMP 36.6; O2SAT 95
[2020-11-30 15:37] VITALS: BP 131/87; PULSE 70; RESP 17; TEMP 36.4; O2SAT 96
--- NOTE | 2020-11-30 15:45 | W.ANESPOSTOP ---
Postoperative Evaluation Date, Time and Location Date Performed: 11/30/20 Time Performed: 15:45 Patient Location: Day Surgery Unit Vital Signs Most Recent Imported Vital Signs: Most Recent Vital Signs Temp Pulse Resp BP Pulse Ox 36.6 C 70 16 137/93 H 95 11/30/20 15:19 11/30/20 15:19 11/30/20 15:19 11/30/20 15:19 11/30/20 15:19 Pain Score Most Recent Pain Score: Most Recent Pain Score Pain Level 0 11/30/20 15:19 Assessment Mental Status: Awake (Alert & Oriented to Patient Baseline) Airway and Respiratory Function: Patent airway with normal (patient baseline) respiratory exam Cardiovascular Function: Hemodynamically Stable Hydration Status: Adequately Hydrated Nausea & Vomiting: No Nausea or Vomiting Pain: Pain is tolerable per patient Peripheral Nerve Block: Patient did not receive a nerve block Teaching Patient Teaching: Discussed Safe Use of Pain Medication Given Likely or Known [place]
[2020-11-30 16:19] VITALS: BP 142/88; PULSE 74; RESP 16; TEMP 36.4; O2SAT 96
== END 2020-11-30 16:28 | disposition home or self-care (01) ==
PROVIDERS: PCP Family Medicine; Visit Provider Student in an Organized Health Care Education/Training Program
PROC: (CPT 23700; principal; 2020-11-30 14:15)
DX: M75.02 Adhesive capsulitis of left shoulder (principal); E11.9 Type 2 diabetes mellitus without complications; I10 Essential (primary) hypertension
CPT/HCPCS: 23700; 20610; J0131; J1040; J1100; J1885; J2001; J2405

== ENCOUNTER 2020-12-22 02:54 | Outpatient (CLI) | payer OTHER, SELFPAY ==
[2020-12-22 22:35] LABS: PSA, Screening 4.1 ng/mL (0.0-4.5)
== END 2020-12-22 02:55 | disposition home or self-care (01) ==
LOC: LBO 02:54
PROVIDERS: PCP Family Medicine; Visit Provider Nurse Practitioner Gerontology
DX: Z12.5 Encounter for screening for malignant neoplasm of prostate (principal); N40.0 Benign prostatic hyperplasia without lower urinary tract symptoms; Z80.42 Family history of malignant neoplasm of prostate
CPT/HCPCS: 36415; 84153

== ENCOUNTER 2020-12-23 14:20 | Outpatient (REF) | payer OTHER, SELFPAY ==
[2020-12-23 19:52] LABS: ALT 149 U/L (16-63); AST 77 U/L (15-37); Albumin 4.2 g/dL (3.4-5.0); Alkaline Phosphatase 90 U/L (46-116); Anion Gap 12.4 mmol/L (3-11); BUN 17 mg/dL (7-18); Bilirubin, Total 0.4 mg/dL (0.2-1.0); CO2 23.6 mmol/L (21.0-32.0); Calcium 9.1 mg/dL (8.5-10.1); Calculated LDL 145 mg/dL (<100); Chloride 104 mmol/L (98-107); Cholesterol 249 mg/dL (<200); Glucose 178 mg/dL (74-106); HDL Cholesterol 38 mg/dL (40-60); Potassium 4.1 mmol/L (3.5-5.1); Sodium 140 mmol/L (136-145); Total Protein 7.6 g/dL (6.4-8.2); Triglyceride 333 mg/dL (<150)
[2020-12-23 19:58] LABS: Hemoglobin A1C 7.1 % (<5.7)
[2020-12-26 02:42] LABS: Vitamin D 25 Total 50.2 ng/mL (30-100)
== END 2020-12-23 14:21 | disposition home or self-care (01) ==
LOC: NCHCN 14:20
PROVIDERS: PCP Family Medicine; Visit Provider Nurse Practitioner Family
DX: E11.9 Type 2 diabetes mellitus without complications (principal); Z79.4 Long term (current) use of insulin; I10 Essential (primary) hypertension; E78.5 Hyperlipidemia, unspecified; F32.9 Major depressive disorder, single episode, unspecified
CPT/HCPCS: 80053; 80061; 82306; 83036

== ENCOUNTER 2021-06-19 15:35 | Outpatient (CLI) | payer OTHER, SELFPAY ==
--- NOTE | 2021-06-19 15:15 | DI.RAD_ITS ---
Exam(s) XR SHOULDER LT COMPLETE 2+V EXAM: XR SHOULDER LT COMPLETE 2+V CLINICAL HISTORY: left shoulder pain. TECHNIQUE: 2D digital imaging was performed. Two views. COMPARISON: MR MR UPPER JOINT LT WO from 05/23/2020 FINDINGS: BONES: No acute fracture is present. No bony destructive lesion is seen. JOINTS: No dislocation present. No significant inferior spurring at the AC joint. Mild spurring at the glenoid. Mild glenohumeral joint space narrowing. SOFT TISSUE: Normal. IMPRESSION: Mild degenerative changes of the glenohumeral joint. DATA REPOSITORY: RADIATION DOSE DELIVERED:
== END 2021-06-19 15:36 | disposition home or self-care (01) ==
LOC: DIORS 15:35
PROVIDERS: PCP Family Medicine; Visit Provider Physician Assistant
DX: M25.512 Pain in left shoulder; M19.012 Primary osteoarthritis, left shoulder; M24.612 Ankylosis, left shoulder; Z98.890 Other specified postprocedural states
CPT/HCPCS: 73030

== ENCOUNTER 2021-07-04 14:52 | Outpatient (REF) | payer OTHER, SELFPAY ==
[2021-07-04 13:56] LABS: Hemoglobin A1C 6.9 % (<5.7)
[2021-07-04 14:14] LABS: Cholesterol 233 mg/dL (<200); HDL Cholesterol 37 mg/dL (40-60); Triglyceride 431 mg/dL (<150)
[2021-07-04 14:25] LABS: LDL CHOLESTEROL 129 mg/dL (<100)
== END 2021-07-04 14:53 | disposition home or self-care (01) ==
LOC: NCHCN 14:52
PROVIDERS: PCP Family Medicine; Visit Provider Nurse Practitioner Family
DX: E11.9 Type 2 diabetes mellitus without complications (principal); E78.5 Hyperlipidemia, unspecified
CPT/HCPCS: 80061; 83721; 83036

== ENCOUNTER 2021-07-13 01:07 | Outpatient (CLI) | payer OTHER, SELFPAY ==
--- NOTE | 2021-07-13 08:45 | DI.RAD_ITS ---
Exam(s) RF JOINT INJECTION FLUORO GUID EXAM: RF JOINT INJECTION FLUORO GUID CLINICAL HISTORY: LEFT SHOULDER PAIN, FLUORO GUIDED INJECTION, BURSITIS, ARTHROFIBROSIS TECHNIQUE: 2D and realtime digital imaging was performed. CONTRAST MATERIAL: Water soluble contrast was administered. COMPARISON: No exams were available for comparison FINDINGS: Fluoroscopy was provided for Dr. Rockwell during the performance of a left shoulder injection. Plea se refer to the procedure report for complete details. RADIATION DOSE DELIVERED: Ka,r=0.079 mGy
--- NOTE | 2021-07-13 15:33 | W.PROCNOTE ---
Date of service: 07/13/21 Time of Service: 15:33 Procedure Note Date of procedure: 07/13/21 Procedure: Left Shoulder Injection Surgeon/Proceduralist/Physician: Mark Rockwell Procedure Diagnosis: Left Shoulder Pain s/p Arthroscopy, Partial Articular Sided Rotator Cuff Te Procedure Indications: Rajesh has had pain of the LEFT shoulder. He had previous arthroscopy but has continued to have some pain. Noninvasive measures have been tried. To serve as both diagnostic and therapeutic, an injection under fluoroscopy was recommended. I had discussed the risks of the procedure and the patient elected to proceed. Procedure Description: Rajesh was greeted in the flouroscopy room. The correct side was identified and the consent was reviewed with the patient and signed. The patient was then placed in the supine position on the fluoroscopy table. The LEFT shoulder was then prepped with Chloraprep. The anterior injection starting point was identiifed by bony landmarks and fluoroscopy. The skin and soft tissue in the tract of the injection was anesthetized with 1% Lidocaine. A spinal needle was then inserted deep into the shoulder joint at the level of the recess between the glenoid and superior humeral head. A small amount of Omnipaque solution was injected to confirm intraarticular placement. Once confirmed, the shoulder was injected with 4cc of 0.5% Bupivicaine and 80mg of Depo-Medrol. A bandaid was placed on the injection site. The patient tolerated the procedure well.
[2021-07-13] MEDS: Omnipaque 300 MG/ML 10 ML BTL IJ (15:53)
[2021-07-13] MEDS: methylPREDNISolone ACETATE 80 MG/ML VIAL IM (15:55)
== END 2021-07-13 01:27 ==
PROVIDERS: PCP Family Medicine; Visit Provider Student in an Organized Health Care Education/Training Program
DX: M75.82 Other shoulder lesions, left shoulder; M25.512 Pain in left shoulder
CPT/HCPCS: 20610; 77002; J1040

== ENCOUNTER 2021-09-25 08:58 | Outpatient (REF) | payer OTHER, SELFPAY ==
[2021-09-25 16:28] LABS: ALT 74 U/L (16-63); AST 42 U/L (15-37); Albumin 4.4 g/dL (3.4-5.0); Alkaline Phosphatase 84 U/L (46-116); Anion Gap 8.7 mmol/L (3-11); BUN 13 mg/dL (7-18); Bilirubin, Total 0.5 mg/dL (0.2-1.0); CO2 27.3 mmol/L (21.0-32.0); Calcium 9.6 mg/dL (8.5-10.1); Chloride 101 mmol/L (98-107); Creatine Kinase 135 U/L (39-308); Glucose 154 mg/dL (74-106); Potassium 4.4 mmol/L (3.5-5.1); Sodium 137 mmol/L (136-145); Total Protein 8.4 g/dL (6.4-8.2)
[2021-09-25 17:44] LABS: Hemoglobin A1C 6.4 % (<5.7)
[2021-09-25 23:23] LABS: Cholesterol 233 mg/dL (<200); HDL Cholesterol 42 mg/dL (40-60); Triglyceride 475 mg/dL (<150)
[2021-09-26 00:27] LABS: LDL CHOLESTEROL 113 mg/dL (<100)
== END 2021-09-25 08:59 | disposition home or self-care (01) ==
LOC: NCHCN 08:58
PROVIDERS: PCP Family Medicine; Visit Provider Family Medicine
DX: E11.9 Type 2 diabetes mellitus without complications (principal); E78.5 Hyperlipidemia, unspecified; I10 Essential (primary) hypertension; K76.0 Fatty (change of) liver, not elsewhere classified
CPT/HCPCS: 80053; 80061; 82550; 83721; 83036

== ENCOUNTER → 2022-01-08 13:01 | Outpatient (BNVA) | payer OTHER, MEDICARE, SELFPAY | PROVIDERS: PCP Family Medicine; Referring Provider Family Medicine; Visit Provider Nurse Practitioner Gerontology | CPT/HCPCS: 51798; 99214 ==

== ENCOUNTER 2023-10-31 12:52 | Outpatient (REF) | payer OTHER, SELFPAY ==
[2023-10-31 15:56] LABS: ALT 101 U/L (16-63); AST 74 U/L (15-37); Albumin 4.3 g/dL (3.4-5.0); Alkaline Phosphatase 74 U/L (46-116); Anion Gap 11.5 mmol/L (3-11); BUN 11 mg/dL (7-18); Bilirubin, Total 0.66 mg/dL (0.2-1.0); CO2 23.5 mmol/L (21.0-32.0); Calcium 9.5 mg/dL (8.5-10.1); Chloride 103 mmol/L (98-107); Estimated GFR 83.01 (mL/min/1.73m2); Glucose 189 mg/dL (74-106); Potassium 4.3 mmol/L (3.5-5.1); Sodium 138 mmol/L (136-145); TSH (W/Ref FT4) 3.21 uIU/mL (0.36-3.74); Total Protein 8.2 g/dL (6.4-8.2)
== END 2023-10-31 12:53 | disposition home or self-care (01) ==
LOC: NCHCN 12:52
PROVIDERS: PCP Family Medicine; Visit Provider Family Medicine
DX: Z00.00 Encounter for general adult medical examination without abnormal findings (principal); I10 Essential (primary) hypertension
CPT/HCPCS: 80053; 84443

== ENCOUNTER 2024-01-22 04:59 | Outpatient (CLI) | payer OTHER, SELFPAY ==
[2024-01-22 23:00] LABS: PSA, Diagnostic 3.5 ng/mL (<=4.5)
== END 2024-01-22 05:00 | disposition home or self-care (01) ==
LOC: LBO 05:00
PROVIDERS: PCP Family Medicine; Visit Provider Nurse Practitioner Gerontology
DX: Z80.42 Family history of malignant neoplasm of prostate (principal); N40.0 Benign prostatic hyperplasia without lower urinary tract symptoms
CPT/HCPCS: 36415; 84153

== ENCOUNTER 2024-07-27 03:15 | Outpatient (CLI) | payer OTHER, SELFPAY | END 2024-07-27 03:16 | disposition home or self-care (01) | LOC: LBO 03:15 | PROVIDERS: PCP Family Medicine; Visit Provider Nurse Practitioner Gerontology | DX: N40.0 Benign prostatic hyperplasia without lower urinary tract symptoms (principal); R97.20 Elevated prostate specific antigen [PSA] | CPT/HCPCS: 36415; 84153 ==

== ENCOUNTER 2024-09-22 14:43 | Outpatient (REF) | payer OTHER, SELFPAY ==
[2024-09-22 17:52] LABS: ALT 66 U/L (16-63); AST 40 U/L (15-37); Albumin 4.3 g/dL (3.4-5.0); Alkaline Phosphatase 80 U/L (46-116); Anion Gap 11.6 mmol/L (3-11); BUN 13 mg/dL (7-18); Bilirubin, Total 0.6 mg/dL (0.2-1.0); CO2 26.4 mmol/L (21.0-32.0); Calcium 9.5 mg/dL (8.5-10.1); Chloride 102 mmol/L (98-107); Estimated GFR 82.49 (mL/min/1.73m2); Glucose 147 mg/dL (74-106); Hemoglobin A1C 7.2 % (<5.7); Potassium 4.3 mmol/L (3.5-5.1); Sodium 140 mmol/L (136-145); Total Protein 8.1 g/dL (6.4-8.2)
[2024-09-22 20:55] LABS: Calculated LDL 98 mg/dL (<100); Cholesterol 213 mg/dL (<200); HDL Cholesterol 40 mg/dL (>or=40); Triglyceride 375 mg/dL (<150)
== END 2024-09-22 14:44 | disposition home or self-care (01) ==
LOC: NCHCN 14:43
PROVIDERS: PCP Family Medicine; Visit Provider Family Medicine
DX: E11.42 Type 2 diabetes mellitus with diabetic polyneuropathy (principal); K76.0 Fatty (change of) liver, not elsewhere classified
CPT/HCPCS: 80053; 80061; 83036

== ENCOUNTER 2025-02-25 13:45 | Outpatient (REF) | payer OTHER, SELFPAY | END 2025-02-25 13:46 | disposition home or self-care (01) | LOC: NCHCN 13:45 | PROVIDERS: PCP Family Medicine; Visit Provider Family Medicine | DX: E11.9 Type 2 diabetes mellitus without complications (principal) | CPT/HCPCS: 82043; 82570 ==

== ENCOUNTER 2025-03-10 01:34 | Outpatient (CLI) | payer OTHER, SELFPAY ==
[2025-03-10 11:04] LABS: Hemoglobin A1C 7.0 % (<5.7)
[2025-03-10 18:38] LABS: PSA, Diagnostic 3.9 ng/mL (<=4.5)
== END 2025-03-10 01:35 | disposition home or self-care (01) ==
LOC: LBO 01:34
PROVIDERS: PCP Family Medicine; Visit Provider Nurse Practitioner Gerontology
DX: E11.9 Type 2 diabetes mellitus without complications (principal); R97.20 Elevated prostate specific antigen [PSA]; Z80.42 Family history of malignant neoplasm of prostate
CPT/HCPCS: 36415; 83036; 84153